=== PATIENT | female | born 1970 | race Two or more races ===

== ENCOUNTER 2020-06-25 14:50 | Outpatient (CLI) | payer OTHER ==
[~2020-06-25 14:50] MED LIST: KETO10TA2 PO; ORPH100T PO
== END 2020-06-25 15:00 | disposition home or self-care (01) ==
LOC: LAB 14:50
PROVIDERS: ATTEND Emergency Medicine Pediatric Emergency Medicine
DX: Z03.818 Encounter for observation for suspected exposure to other biological agents ruled out (principal)

== ENCOUNTER 2021-03-17 14:30 | Outpatient (CLI) | payer OTHER | END 2021-03-17 14:35 | disposition home or self-care (01) | LOC: MAMO-SONO 14:30 | PROVIDERS: ATTEND Obstetrics & Gynecology | DX: N60.11 Diffuse cystic mastopathy of right breast (principal); N60.12 Diffuse cystic mastopathy of left breast; Z12.31 Encounter for screening mammogram for malignant neoplasm of breast; Z87.898 Personal history of other specified conditions ==

== ENCOUNTER 2021-04-06 13:50 | Outpatient (CLI) | payer OTHER | END 2021-04-06 13:52 | disposition home or self-care (01) | LOC: NUCLEAR 13:50 | PROVIDERS: ATTEND Obstetrics & Gynecology | DX: M81.0 Age-related osteoporosis without current pathological fracture (principal) ==

== ENCOUNTER 2021-05-06 07:34 | Outpatient (CLI) | payer OTHER | END 2021-05-06 14:42 | disposition home or self-care (01) | LOC: LAB 07:34 | PROVIDERS: ATTEND Obstetrics & Gynecology | DX: N95.8 Other specified menopausal and perimenopausal disorders (principal); E78.49 Other hyperlipidemia ==

== ENCOUNTER 2022-06-15 15:47 | Outpatient (CLI) | payer OTHER | END 2022-06-15 16:00 | disposition home or self-care (01) | LOC: LAB 15:47 | PROVIDERS: ATTEND Internal Medicine Gastroenterology | DX: Z03.818 Encounter for observation for suspected exposure to other biological agents ruled out (principal); Z20.822 Contact with and (suspected) exposure to COVID-19 ==

== ENCOUNTER → 2022-07-06 12:35 | Outpatient (CLI) | payer OTHER | END | disposition home or self-care (01) | LOC: LAB 12:35 | DX: Z20.822 Contact with and (suspected) exposure to COVID-19 (principal) ==

== ENCOUNTER 2022-08-09 08:45 | Outpatient (CLI) | payer OTHER | END 2022-08-09 08:50 | disposition home or self-care (01) | LOC: LAB 08:45 | PROVIDERS: ATTEND Obstetrics & Gynecology | DX: E03.8 Other specified hypothyroidism (principal); I10 Essential (primary) hypertension; E78.49 Other hyperlipidemia; Z12.11 Encounter for screening for malignant neoplasm of colon; N83.00 Follicular cyst of ovary, unspecified side; E83.51 Hypocalcemia; N95.8 Other specified menopausal and perimenopausal disorders ==

== ENCOUNTER → 2022-08-10 | Outpatient (CLI) | payer OTHER | END | disposition home or self-care (01) | LOC: MAMO-SONO 14:42 | PROVIDERS: ATTEND Obstetrics & Gynecology | DX: Z12.31 Encounter for screening mammogram for malignant neoplasm of breast (principal); N60.11 Diffuse cystic mastopathy of right breast; N60.12 Diffuse cystic mastopathy of left breast ==

== ENCOUNTER 2022-09-01 14:49 | Outpatient (CLI) | payer OTHER | END 2022-09-01 14:54 | disposition home or self-care (01) | LOC: LAB 14:49 | PROVIDERS: ATTEND Radiology Diagnostic Radiology | DX: N64.59 Other signs and symptoms in breast (principal) ==

== ENCOUNTER 2022-09-12 15:55 | Outpatient (CLI) | payer OTHER | END 2022-09-12 16:09 | disposition home or self-care (01) | LOC: LAB 15:55 | PROVIDERS: ATTEND Preventive Medicine Occupational Medicine | DX: U07.1 COVID-19 (principal) ==

== ENCOUNTER → 2024-11-18 | Emergency (ER) | payer OTHER ==
[~2024-11-18] VITALS: Ht 165.1 cm; Wt 72.6 kg
[~2024-11-18] MED LIST changes: +ATORVASTATIN CA20 MG; +KETOROLAC TROMETHAMINE 60 MG VIAL IM STA; +NASAL MIST126 ML
== END | disposition home or self-care (01) ==
LOC: ER 11:37
DX: M25.552 Pain in left hip (principal)

== ENCOUNTER → 2025-01-04 | Emergency (ER) | payer OTHER ==
[~2025-01-04] VITALS: Ht 165.1 cm; Wt 66.2 kg
[~2025-01-04] MED LIST changes: +0.9 % SODIUM CHLORIDE 500 ML IV ONE; +FAMOTIDINE/PF 20 MG/2 ML VIAL IV ONE; +FAMOTIDINE/PF 20 MG/2 ML VIAL ONE; -KETOROLAC TROMETHAMINE 60 MG VIAL IM STA; +LACTOBACILLUS ACIDOPHILUS 1 CAP CAP PO ONE; +OMEPRAZOLE20 MG PO; +ONDANSETRON HCL 2 MG/ML VIAL IV ONE; +ONDANSETRON HCL 2 MG/ML VIAL ONE; +ONDANSETRON HCL4 MG PO
[2025-01-04 16:42] LABS: HEMATOCRIT 42.7 % (36.0-45.00); HEMOGLOBIN 14.3 g/dL (12.0-15.00); MEAN CELL VOLUME 88.8 fL (80.00-100.00); MEAN CORPUSCULAR HEMOGLOBIN 29.8 pg (27.00-32.0); MEAN CORPUSCULAR HGB CONC 33.6 g/dl (32.0-36.0); PLATELET COUNT 333 K/uL (150-450); RED BLOOD COUNT 4.81 M/uL (4.00-6.00); RED CELL DISTRIBUTION WIDTH 12.2 % (11.5-14.5)
[2025-01-04 17:00] LABS: COVID-19 AG NEGATIVE (NEGATIVE)
[2025-01-04 17:01] LABS: INFLUENZA A AG NEGATIVE (NEGATIVE)
[2025-01-04 17:05] LABS: ALBUMIN 4.5 gm/dL (3.4-5.0); BILIRUBIN TOTAL 0.57 mg/dL (0.3-1.2); CALCIUM 9.8 mg/dL (8.5-10.1); CREATININE SERUM 0.74 mg/dL (0.55-1.02); GFR 81.48; GLOBULINA 3.8 G/DL (2.4-3.5); POTASSIUM 3.79 mEq/L (3.5-5.1); TOTAL PROTEIN 8.3 gm/dL (6.4-8.2)
== END | disposition home or self-care (01) ==
LOC: ER 13:06
DX: K29.70 Gastritis, unspecified, without bleeding (principal); K76.0 Fatty (change of) liver, not elsewhere classified; R53.81 Other malaise; Z20.822 Contact with and (suspected) exposure to COVID-19; I10 Essential (primary) hypertension

== ENCOUNTER 2025-04-16 21:27 | Emergency (ER) | payer OTHER ==
[~2025-04-16] VITALS: Ht 165.1 cm; Wt 66.7 kg
[~2025-04-16 21:27] MED LIST changes: -0.9 % SODIUM CHLORIDE 500 ML IV ONE; -FAMOTIDINE/PF 20 MG/2 ML VIAL IV ONE; -FAMOTIDINE/PF 20 MG/2 ML VIAL ONE; -LACTOBACILLUS ACIDOPHILUS 1 CAP CAP PO ONE; -ONDANSETRON HCL 2 MG/ML VIAL IV ONE; -ONDANSETRON HCL 2 MG/ML VIAL ONE
[2025-04-16] MEDS ORDERED: KETOROLAC TROMETHAMINE 10 MG TABLET PO PRN (23:45)
[2025-04-16] MEDS ORDERED: KETOROLAC TROMETHAMINE 10 MG TABLET PO ONE (23:50)
== END 2025-04-17 00:07 | disposition home or self-care (01) ==
LOC: ER 21:27
DX: S93.492A Sprain of other ligament of left ankle, initial encounter (principal); X83.8XXA Intentional self-harm by other specified means, initial encounter; Y93.89 Activity, other specified; Y92.89 Other specified places as the place of occurrence of the external cause; Y99.8 Other external cause status; I10 Essential (primary) hypertension

== ENCOUNTER 2025-07-09 14:50 | Outpatient (CLI) | payer OTHER | END 2025-07-09 14:52 | disposition home or self-care (01) | LOC: MAMO-SONO 14:50 | PROVIDERS: ATTEND Surgery | DX: N60.11 Diffuse cystic mastopathy of right breast (principal); N60.12 Diffuse cystic mastopathy of left breast ==